=== PATIENT | male | born 1955 | race Caucasian/White ===

== ENCOUNTER 2022-04-09 13:04 | Outpatient (CLI) | payer SELFPAY ==
[2022-04-09 13:14] LABS: Hematocrit 43.2 % (40.0-54.0); Hemoglobin 13.2 g/dL (14.0-18.0); Mean Corpuscular HGB Conc 30.6 g/dL (32.0-36.0); Mean Corpuscular Hemoglobin 30.8 pg (27.0-31.0); Mean Corpuscular Volume 100.7 fL (78.0-102.0); Mean Platelet Volume 9.9 fl (8.7-11.0); Platelet Count Result 258 K/mm3 (150-420); Red Blood Count 4.29 M/mm3 (4.70-6.10); Red Cell Distribution Width 12.3 % (11.6-14.4); White Blood Count 7.1 K/mm3 (4.8-10.8)
[2022-04-09 13:50] LABS: Alanine Aminotransferase 28 U/L (16-63); Albumin Level 3.8 g/dL (3.4-5.0); Alkaline Phosphatase 159 U/L (46-116); Anion Gap 2 mmol/L (8-16); Aspartate Amino Transferase 27 U/L (15-37); Bilirubin,Total 0.4 mg/dL (0.00-1.00); Blood Urea Nitrogen 18 mg/dL (7-18); Calcium 9.6 mg/dL (8.5-10.1); Carbon Dioxide 40 mmol/L (21-32); Chloride 100 mmol/L (98-108); Estimated Glomerular Filt Rate > 60; Glucose 119 mg/dL (70-99); Osmolality Calculated 296 mOsm/kg (285-295); Potassium 5.1 mmol/L (3.5-5.1); Prostate Specific Antigen 0.4 ng/mL (< OR = 4.0); Sodium 142 mmol/L (136-145); Thyroid Stimulating Hormone 2.67 uIU/mL (0.36-3.74); Total Protein 7.5 g/dL (6.4-8.2)
== END 2022-04-09 13:05 | disposition home or self-care (01) ==
PROVIDERS: PCP Family Medicine Adolescent Medicine; Visit Provider Family Medicine Adolescent Medicine
DX: K70.31 Alcoholic cirrhosis of liver with ascites (principal); I10 Essential (primary) hypertension; G62.1 Alcoholic polyneuropathy; R63.4 Abnormal weight loss; Z12.5 Encounter for screening for malignant neoplasm of prostate
CPT/HCPCS: 36415; 80053; 84153; 84443; 85027; G0103

== ENCOUNTER 2024-02-05 09:59 | Emergency (ER) | payer MEDICARE, SELFPAY ==
[2024-02-05 09:59] VITALS: PULSE 0; RESP 0; TEMP 35.2; O2SAT 0
--- NOTE | 2024-02-05 10:06 | ED.CPR ---
HPI - CPR General Chief Complaint: Cardiac Arrest/CPR Stated Complaint: Ambulance Time Seen by Provider: 02/05/24 10:06 Source: patient Mode of arrival: ambulatory Limitations: no limitations History of Present Illness HPI narrative: 68-year-old male with a history of hypertension, alcoholic cirrhosis, peripheral neuropathy, hypertension called EMS at 9:15 a.m.. By the time EMS arrived the patient A armored vehicle officer was present on scene. The patient collapsed and was noted to be in VFib arrest. The patient was resuscitated per ACLS protocol with CPR, shock and epinephrine. The patient received an IO. The patient was in VFib for approximately 15 minutes following which he had an asystolic arrest. The patient was resuscitated for asystolic arrest for approximately 12-13 minutes. The patient was brought to the ED with ongoing CPR. On arrival to the ED the patient was noted to be unresponsive with fixed and dilated pupils. No palpable pulse noted. No heart sounds noted. No spontaneous breathing noted. The patient was pronounced on arrival at 10:00 a.m.. complaint: found unresponsive Place: home Initial findings in the field: unresponsive Related Data Allergies Allergy/AdvReac Type Severity Reaction Status Date / Time No Known Allergies Allergy Mild Verified 04/04/23 15:29 Review of Systems Review of Systems: All systems reviewed & are unremarkable except as noted in HPI and below PMFSH Surgical History Surgical History History of surgery on left wrist Hx of tonsillectomy Family History Family History Father , suicide No problems noted. Social History Social History Smoking status: Former smoker Exam Narrative: Patient was noted to be unresponsive with fixed and dilated pupils. No heart sounds noted. No palpable pulse. No spontaneous respiration. The patient had been asystolic for the past 12 minutes. The patient was pronounced at 10:00 a.m.. Course Course Emergency Course: on arrival MDM - Cardiac Arrest/CPR MDM Narrative Medical decision making narrative: on arrival VFib cardiac arrest. subsequently asystolic cardiac arrest. Discharge Plan Discharge Clinical Impression: Cardiac arrest Patient Disposition: Condition: Prescriptions: No Action amitriptyline 150 mg tablet 300 mg PO QHS Qty: 60 8RF hydrocodone-acetaminophen 7.5-325 mg tablet 1 tablet PO Q4H PRN (Reason: pain) Qty: 150 0RF Rx Instructions: May take up to 5 per day. THIS PRESCRIPTION MUST LAST 30 DAYS Follow-up/Referrals: UNKNOWN,DOCTOR [Primary Care Provider] - Time of Disposition: 10:14
--- NOTE | 2024-02-05 10:25 | PC.NURSE ---
VLADISLAV WITH DR KWAN'S OFFICE NOTIFIED, STATES SHE WILL NOTIFY DR KWAN. [phone]. [id number] THIS RN SPOKE WITH DEEPAK TASHSCOTT BATES [phone], WHO REPORTS PT IS TO BE RELEASED TO [facility] IN [place] [phone]. HUYEN HINTON, PT'S SIGNIFICANT OTHER IS IN GRIEVING ROOM, TASH (DAUGHTER) IS NOT COMING TO ER. SHE REPORTS PT'S MOTHER LIVES IN [place] [place] [phone]. TASH WOULD LIKE TO NOTIFY HER AND PT'S SON, ROSA M SMALL [phone].
--- NOTE | 2024-02-05 12:52 | PC.NURSE ---
Post mortem care provided. IO removed. Toe tag placed on left great toe.. Pt placed in post mortem bag. [facility]. Pt sent to home for cold storage. Awaiting [facility]TS decision. [facility] aware of pt transport to home.
== END 2024-02-05 12:30 | disposition expired ==
PROVIDERS: Emergency Provider Internal Medicine Critical Care Medicine
DX: I46.9 Cardiac arrest, cause unspecified (principal); K70.30 Alcoholic cirrhosis of liver without ascites; I10 Essential (primary) hypertension; Z87.891 Personal history of nicotine dependence
CPT/HCPCS: 92950; 99285